=== PATIENT | female | born 1985 | race Caucasian/White ===

== ENCOUNTER 2018-07-16 05:12 | Day surgery (SDC) | payer OTHER ==
[~2018-07-16 05:12] MED LIST: CLONAZEPAM2 MG PO; ELDEPRYL5 MG PO; METFORMIN HCL1000 MG PO; POTASSIUM99 MG PO; PROPRANOLOL HCL10 MG PO; SEROQUEL300 MG PO; TOPAMAX15 MG PO
[2018-07-16] MEDS ORDERED: Tylenol #3 PO (09:42)
[2018-07-16] MEDS ORDERED: DOXYCYCLINE HY100 M3 PO (09:42)
== END 2018-07-16 12:30 | disposition home or self-care (01) ==
LOC: CIR.AMB 05:12
DX: N84.0 Polyp of corpus uteri (principal); D25.0 Submucous leiomyoma of uterus